=== PATIENT | male | born 1990 | race Hispanic/Latino ===

== ENCOUNTER 2024-04-16 12:34 | Emergency (ER) | payer SELFPAY ==
[2024-04-16] VITALS (7 sets, daily range): BP systolic 111–144; BP diastolic 64–83
[~2024-04-16] VITALS: Ht 162.6 cm; Wt 65.8 kg
[2024-04-16 14:53] LABS: BASO% 0.5 % (0-3); EOS% 1.8 % (0-8); HEMATOCRIT 47.7 % (39.0-50.0); HEMOGLOBIN 16.2 g/dl (14.0-18.0); IMMATURE GRANULOCYTES 0.1 % (0.0-5.0); LYMPH% 29.6 % (15-41); MEAN CELL VOLUME 93.3 fL CALC (80.0-100.0); MEAN CORPUSCULAR HGB 31.7 pG CALC (26.0-32.0); MONO% 9.5 % (2-13); NEUT# 4.98 thou/uL (1.82-7.42); NEUT% 58.5 % (42-76); RED BLOOD COUNT 5.11 mill/uL (4.70-6.10); RED CELL DISTRI WIDTH 12.8 % (11.5-15.5)
[2024-04-16 15:05] LABS: ALBUMIN 4.8 g/dL (3.2-5.0); BILIRUBIN, TOTAL 1.6 mg/dL (0.2-1.3); CREATININE 1.4 mg/dL (0.7-1.3); TOTAL PROTEIN 8.3 g/dL (6.3-8.2)
== END 2024-04-16 15:44 | disposition home or self-care (01) | DRG 948 ==
LOC: ED 12:34
PROVIDERS: Family Medicine
DX: R53.83 Other fatigue (principal)